=== PATIENT | female | born 1990 | race African-American/Black ===

== ENCOUNTER 2025-05-04 10:24 | Outpatient (AMB) | payer OTHER, SELFPAY ==
--- NOTE | 2025-05-04 11:09 | MHC.PC.OV ---
Vital Signs 05/04/25 11:14 Height 5 ft 3 in Weight 161 lb BMI 28.5 BP 100/78 Blood Pressure Location Lt brachial Position Sitting Respiration 16 Pulse 70 Pulse Source Pulse Oximeter Temp 98.0 F Temp Source Oral Pulse Oximetry (%) 100 Oxygen Delivery Method Room Air Intake Visit Reasons: Est Care/Requesting PE Intake Note: Pt is here today as a New patient to est care/ PE Is last menstrual period known: Yes Last menstrual period: 04/25/25 Allergies No Known Allergies Allergy (Verified 05/04/25 11:26) Medication List - Last Reconciled 05/04/25 by Eve Ortega MD cholecalciferol (vitamin D3) 125 mcg PO DAILY [id number] liver-vit A-D3 240-1,000 mg caps PO povidone (PF) 0.5% (iVizia (PF)) drps ophthalmic (eye) Tobacco use date assessed: 05/04/25 Dental Screening Dental Screen Date: 05/04/25 Did you have a dental visit in the last 12 months?: Yes Did you have a dental problem in the last 6 months where you did not have access to dental care?: No Was dental information given to patient?: Patient has dentist HPI Est Care/Requesting PE HPI Details 34-year-old lady, new to practice, here to establish care with new PCP and for physical exam. 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 Needs referral to a new OBGYN for her routine Pap and pelvic exam, last exam was done in [place] approximately 3 years ago which came back with normal findings per patient [facility] Medical History (Updated 05/04/25 @ 11:34 by Eve Ortega MD) Flu vaccine refused Surgical History (Updated 05/04/25 @ 11:46 by Eve Ortega MD) No pertinent past surgical history Family History (Updated 05/04/25 @ 11:49 by Eve Ortega MD) Maternal Grandfather Prostate cancer Diabetes mellitus Maternal Aunt Breast cancer, Onset Age: 45 Essential hypertension Social History Housing: House Patient Tobacco Use Status: Never used Tobacco e-Cigarette/Vaping Use: Never Used service: No Current occupational status: student Hearing needs: No Vision needs: No Female Reproductive History Menstrual Date of last menstrual period: 04/25/25 Other: Last Pap was done in [place] approximately 3 years, although Questionnaire PHQ-9 Over the last 2 weeks, how often have you been bothered by any of the following problems? 1. Little interest or pleasure in doing things: not at all 2. Feeling down, depressed, or hopeless: not at all 3. Trouble falling or staying asleep, or sleeping too much: not at all 4. Feeling tired or having little energy: not at all 5. Poor appetite or overeating: not at all 6. Feeling bad about yourself - or that you are a failure or have let yourself or your family down: not at all 7. Trouble concentrating on things, such as reading the newspaper or watching television: not at all 8. Moving or speaking so slowly that other people could have noticed. Or the opposite - being so fidgety or restless that you have been moving around a lot more than usual: not at all 9. Thoughts that you would be better off or of hurting yourself in some way: not at all Total score: 0 Depression Screening Interpretation: Negative Depression Screening Done: Yes 96082 - PHQ-9 Billing: Yes Source: Developed by Drs. Satya Mohamud, Brianda Stoll, Malcolm Aldana and colleagues, with an educational elena from [employer] Thrive Questionnaire Date Thrive assessed: 05/04/25 I am a: Patient What is your living situation today?: I have a steady place to live Within the past 12 months, did the food you bought not last and you didn't have the money to get more?: Never true Within the past 12 months, did you worry whether your food would run out before you got money to buy more?: Never true Do you have trouble paying for medicines?: No Do you have trouble getting transportation to medical appointments?: No Do you have trouble paying your heating and electricity bill?: No Do you have trouble taking care of your child, family member or friend?: No Do you have trouble with day-to-day activities such as bathing, preparing meals, shopping, managing finances, etc.?: No Are you currently unemployed and looking for a job?: I choose not to answer this question Are you interested in more education?: No Please select the resources that you would like help with: None Currently or been in a relationship where the following occur: No concerns reported THRIVE Score: 0 AUDIT C Alcohol Use Questionnaire (AUDIT-C) 1. How often do you have a drink containing alcohol?: Never Total Score: 0 RICA-7 AMB Questionnaire RICA-7 Date RICA - 7 assessed: 05/04/25 Feeling nervous, anxious, or on edge: 0 = Not at all Not being able to stop or control worryin = Not at all Worrying too much about different things: 0 = Not at all Trouble relaxin = Not at all Being so restless that it is hard to sit still: 0 = Not at all Becoming easily annoyed or irritable: 0 = Not at all Feeling afraid as if something awful might happen: 0 = Not at all Total RICA-7 score (0-4 normal; 5-9 mild; 10-14 moderate; 15-21 severe): 0 Source: Developed by Drs. Satya Mohamud, Brianda Stoll, Malcolm Aldana and colleagues, with an educational elena from [employer] RICA-7 Assessment Billing RICA-7 Assessment Tool: RICA-7 Assessment 37941 Review of Systems Const Denies body aches, Denies fatigue, Denies fever(s), Denies headache(s) and Denies weakness Eyes Details: sees [facility] in [facility] Denies change in vision and Reports dry eyes (Advised to start taking [place] 3 fatty acid supplements by her ophthalmologi) ENT Denies dizziness, Denies headache(s), Denies nasal congestion and Denies sore throat Card Denies chest pain, Denies lightheadedness, Denies palpitations and Denies dyspnea Resp Denies chest congestion, Denies cough, Denies dyspnea and Denies wheezing GI Denies abdominal pain, Denies change in bowel habits and Denies heartburn Denies hematuria, Denies urinary frequency, Denies dysuria and Denies urinary urgency Musc Reports no additional complaints Skin/Breast Denies breast pain, Denies breast mass, Denies lesions and Denies rash Neuro Denies dizziness, Denies headache(s) and Denies weakness Psych Reports no additional complaints Endo Denies fatigue, Denies polydipsia, Denies polyuria and Denies palpitations South/Lymph Denies easy bruising Aller/Immun Denies seasonal rhinorrhea and Denies wheezing Physical exam (Primary Care) Vital Signs: Last Vital Signs Temp 98.0 F 05/04/25 11:14 Pulse 70 05/04/25 11:14 Resp 16 05/04/25 11:14 BP 100/78 05/04/25 11:14 Pulse Ox 100 05/04/25 11:14 Oxygen Delivery Method Room Air 05/04/25 11:14 BMI result Body Mass Index 28.5 Tobacco/Smoking Status: Tobacco use Status Tobacco use date assessed 05/04/25 05/04/25 11:10 Patient Tobacco Use Status Never used Tobacco 05/04/25 11:21 e-Cigarette/Vaping Use Never Used 05/04/25 11:21 PHQ-9: PHQ-9 Score PHQ-9: Total score 0 05/04/25 11:28 Depression Screening Interpretation: Negative Thrive Assessment: Date of Thrive Assessment Date Thrive assessed 05/04/25 05/04/25 11:21 Currently or been in a relationship where the following occur: No concerns reported Const General: no acute distress and alert Nutritional Appearance: overweight Orientation/consciousness: patient oriented x3 HENMT Head: Yes normocephalic Ears: external ears normal, TM's normal bilaterally and EAC's normal General nose exam: Normal external nose present and No nasal discharge present Face and sinus: Yes face symmetric Mouth: Normal oral and palatal mucosa present, oropharynx normal and moist mucous membranes Eyes General: appearance normal, both eyes and all related structures Eyelids: Yes eyelids normal Conjunctivae: conjunctivae normal Sclerae: sclerae normal Pupils: Equal, round and reactive pupils present EOM: EOMs intact bilaterally Neck Neck: Yes full ROM, Yes no lymphadenopathy and Yes supple Thyroid: Thyroid normal Chest Breast/axilla palpation: normal palpation of the breasts Resp Effort & Inspection: normal respiratory effort and able to speak in complete sentences Auscultation: clear to auscultation bilaterally Cardio Rate: regular rate Rhythm: regular rhythm Heart sounds: S1 normal heart sound present and S2 normal heart sound present GI Palpation (GI): Soft to palpation, nontender, no guarding and no masses Auscultation: normal bowel sounds General: Yes no CVA tenderness Back/Spine/Pelvis Back: no CVA tenderness and No back tenderness Skin General skin exam: no rashes or lesions noted Neuro General: patient oriented x3, gait normal, moves all extremities, Normal light touch and pain sensation, no focal motor deficits and CN's II-XI intact bilaterally Cranial nerves: Yes Equal, round and reactive pupils present Cognition (Neuro): normal cognition Gait exam (Neuro): Normal gait present Motor exam (neuro): 5/5 motor strength present throughout Extrem General: Yes normal to inspection, Yes full ROM, Yes no joint enlargement, Yes no pedal edema and Yes normal gait Psych Appearance: grossly normal and well kempt Mental Status: mental status grossly normal Speech and movement: Normal speech and movement present Affect: normal affect Attitude: cooperative Thought process: Normal thought process present Thought content: Normal thought content present Coding Level of Care Code New Pt Prev Care 18-39yr(08824 Diagnoses Annual visit for general adult medical examination with abnormal findings Z00.01 Screening for malignant neoplasm of cervix Z12.4 History of vitamin D deficiency Z86.39 Additional Codes RICA-7 Assessment Billing - RICA-7 Assessment Tool: RICA-7 Assessment 41040 ([id number]) PHQ-9 - 62264 - PHQ-9 Billing: Yes ([id number]) Assessment & Plan Assessment & Plan (1) Annual visit for general adult medical examination with abnormal findings: Code(s): Z00.01 - Encounter for general adult medical examination with abnormal findings (2) Screening for malignant neoplasm of cervix: Code(s): Z12.4 - Encounter for screening for malignant neoplasm of cervix (3) History of vitamin D deficiency: Code(s): Z86.39 - Personal history of other endocrine, nutritional and metabolic disease Plan Will check appropriate labs. Recommended dental visit every 6 months and regular eye exams, currently sees her eye doctor in [place]. Take adequate calcium in diet and continue taking vitamin-D 3 at least 2000 IU per cap once a day, in addition to weight-bearing exercises to help maintain good muscle tone and weight control. Instructed to do self-breast exam, and recommended to get yearly mammogram, starting at age 40. Referred to [facility] for routine Pap and pelvic exam. Reminded to get her yearly flu shot Orders: Orders Hemoglobin and Hematocrit 05/04/25 Z00.01 - Encounter for general adult medical examination with abnormal findings, Z13.1 - Encounter for screening for diabetes mellitus, Z13.220 - Encounter for screening for lipoid disorders Lipid Panel 05/04/25 Z00.01 - Encounter for general adult medical examination with abnormal findings, Z13.1 - Encounter for screening for diabetes mellitus, Z13.220 - Encounter for screening for lipoid disorders Alanine Aminotransferase 05/04/25 Z00.01 - Encounter for general adult medical examination with abnormal findings, Z13.1 - Encounter for screening for diabetes mellitus, Z13.220 - Encounter for screening for lipoid disorders Vitamin D 25-OH Total 05/04/25 Z86.39 - Personal history of other endocrine, nutritional and metabolic disease Aspartate Amino Transferase 05/04/25 Z00.01 - Encounter for general adult medical examination with abnormal findings, Z13.1 - Encounter for screening for diabetes mellitus, Z13.220 - Encounter for screening for lipoid disorders Basic Metabolic Panel Fasting 05/04/25 Z00.01 - Encounter for general adult medical examination with abnormal findings, Z13.1 - Encounter for screening for diabetes mellitus, Z13.220 - Encounter for screening for lipoid disorders Referrals [facility] Referral Z12.4 - Encounter for screening for malignant neoplasm of cervix
[2025-05-04 11:14] VITALS: BP 100/78; PULSE 70; RESP 16; TEMP 36.7; O2SAT 100; BMI 28.5
--- OUTSIDE RECORDS SUMMARY | 2025-05-04 11:14 | XMS_ITS ---
Author Name [facility] Organization Unknown History of Medication Use Medication Directions Dispensed Refills Start Date End Date Stat us tobramycin-dexametha sone (drops, suspension) one drop four times daily for 7 days then stop 07/25/2024 completed Eysuvis (drops, suspension) one drop four times daily for 2 weeks then twice daily for 2 weeks then stop 05/26/2024 completed erythromycin (tablet, delayed release (enteric coated)) 500 mg completed iVizia (PF) (drops) 0.5 % comp leted Encounters Encounter Type Encounter Reason Primary Diagnosis Location Date Ambulatory [facility] 03/11/2025 Ambulatory [facility] 07/30 Ambulatory [facility] 06/30 Ambulatory [facility] 06/29 Ambulatory [facility] 05/29 Ambulatory [facility] 04/29 Care Team Organization Name Specialty Phone Email Start Date End Da te [facility] 05/20/2024 [facility] 05/20/2024
== END 2025-05-04 11:53 | disposition home or self-care (01) ==
LOC: HO.HMCC 10:24
PROVIDERS: Visit Provider Internal Medicine
DX: Z00.01 Encounter for general adult medical examination with abnormal findings (principal); Z12.4 Encounter for screening for malignant neoplasm of cervix; Z86.39 Personal history of other endocrine, nutritional and metabolic disease

== ENCOUNTER → 2025-05-04 10:24 | Outpatient (BNVA) | payer OTHER, SELFPAY | PROVIDERS: Visit Provider Internal Medicine | DX: Z00.01 Encounter for general adult medical examination with abnormal findings (principal); Z86.39 Personal history of other endocrine, nutritional and metabolic disease | CPT/HCPCS: 96127 ==

== ENCOUNTER 2025-06-12 08:35 | Outpatient (REF) | payer OTHER, SELFPAY ==
[2025-06-12 10:23] LABS: Hematocrit 37.2 % (37.0-47.0); Hemoglobin 11.8 g/dl (12.0-16.0)
[2025-06-12 10:52] LABS: Alanine Aminotransferase 14 U/L (0-31); Anion Gap 13 (12-20); Aspartate Amino Transferase 20 U/L (5-31); Blood Urea Nitrogen 8 mg/dL (9-16); Calcium 9.3 mg/dL (8.4-10.2); Carbon Dioxide 23 mmol/L (22-29); Chloride 105 mmol/L (96-108); Cholesterol 225 mg/dL (<200); Estimated Glomerular Filt Rate > 60; HDL Cholesterol 61 mg/dL (>40); Potassium 3.7 mmol/L (3.3-5.1); Sodium 137 mmol/L (135-145); Triglycerides 63 mg/dL (<150)
== END 2025-06-12 08:36 | disposition home or self-care (01) ==
LOC: HO.HMGCLDS 08:35
PROVIDERS: PCP Internal Medicine; Visit Provider Internal Medicine
DX: Z00.01 Encounter for general adult medical examination with abnormal findings (principal); Z13.220 Encounter for screening for lipoid disorders; Z13.1 Encounter for screening for diabetes mellitus; Z86.39 Personal history of other endocrine, nutritional and metabolic disease
CPT/HCPCS: 36415; 80048; 80061; 82306; 84450; 84460; 85014; 85018

== ENCOUNTER 2025-07-28 11:05 | Outpatient (REF) | payer OTHER, SELFPAY ==
--- OUTSIDE RECORDS SUMMARY | 2025-07-23 08:15 | XMS_ITS | Encounter Summary ---
Author Organization [facility] Address [address] [place] [address] Care Team Providers Care Air Bag Builder Name Role Phone Eve Ortega MD Primary Care Provider Reason for Visit * Reason Comments Cerumen Impaction Encounter Details Date Type Department Care Team (Latest Contact Info) Description 07/23/2025 8:15 AM EDT Procedure visit [facility] [address], [facility] [address] [place] [id number] Mario Crespo MD [address] [place] [address] Bilateral impacted cerumen (Primary Dx); Conductive hearing loss, bilateral; Eustachian tube dysfunction, bilateral Social History Tobacco Use Types Packs/Day Years Used Date Smoking Tobacco: Never Tobacco Cessation:Counseling Given: Not Answered Alcohol Use Standard Drinks/Week Comments Never 0 (1 standard drink = 0.6 oz pur e alcohol) Comments Unknown Sex and Gender Information Value Date Recorded Sex Assigned at Female 07/21/2025 11:18 AM EDT Legal Sex Female 9:59 AM EDT Gender Identity Female 07/21/2025 11:18 AM EDT Sexual Orientation Heterosexual (straight) 07/21 11:18 AM EDT documented as of this encounter Progress Notes * Mario Crespo MD - 07/23/2025 8:15 AM EDT Images from the original note were not included. [facility], [facility] [address] [facility] [id number] Loc: [phone] Encounter Date: 07/23/2025 History of Present Illness: Jude Sal is a 34 y.o. female who presents today for hearing loss. Patient has been having difficulty with bilateral hearing loss. No difficulty with pain or drainage. No dizziness or instability.No family history of ear disease. No exposure to loud noise. No swelling or behind either ear. No cervical apathy. No difficulty with nasal obstruction. No history of tympanic perforations. Patient also has intermittent difficulty with ear pressure when she flies Physical Exam ENT Physical Exam Ear Auricles: bilateral auricles normal; External Mastoids: bilateral external mastoids normal; Ear Canals: bilateral ear canals impacted cerumen observed; Tympanic Membranes: bilateral tympanic membranes normal; Nose External Nose: nares patent bilaterally; external nose normal; Internal Nose: nasal mucosa normal; septum normal; bilateral inferior turbinates normal; Oral Cavity/Oropharynx Lips: normal; Teeth: normal; Gums: gingiva normal; Tongue: normal; Oral mucosa: normal; Hard palate: normal; Soft palate: normal; Tonsils: normal; Base of Tongue: normal; Posterior pharyngeal wall: no lesion noted; Nasopharynx/Hypopharynx/Larynx Nasopharynx Findings: normal; Hypopharynx: normal; Larynx Findings: normal; Review of Systems Visit Orders. 1. Bilateral impacted cerumen 2. Conductive hearing loss, bilateral 3. Eustachian tube dysfunction, bilateral Past Medical History History reviewed. No pertinent past medical history. History reviewed. No pertinent surgical history. Family History Problem Relation Age of Onset Cancer Maternal Aunt Social History[1] Medication List Current Medications[2] Allergies Allergies[3] Procedure Procedure;: Cerumen removal Using microscope and speculum, the right ear was examined and obstructing wax was removed using loop curette. In a similar fashion left ear was examined and using microscope and speculum obstructing wax removed from the left ear canal. Assessment & Plan Sensory hearing loss and bilateral obstructing earwax. Made recommendations for hygiene for ears including avoiding Q-tips. Using baby oil twice a month. Follow-up as needed. Gave patient handout for flying instructions. Mario Crespo MD [1] Social History Tobacco Use Smoking status: Never Substance Use Topics Alcohol use: Never Drug use: Never [2] No current outpatient medications on file. [3] No Known Allergies documented in this encounter Plan of Treatment Not on file documented as of this encounter Visit Diagnoses Diagnosis Bilateral impacted cerumen- Primary Impacted cerumen Conductive hearing loss, bilateral Eustachian tube dysfunction, bilateral documented in this encounter Care Teams Air Bag Builder Relationship Specialty Start Date End Date Eve Ortega MD [address] [place] [address] PCP - General Internal Medicine 07/23/25 documented as of this encounter
--- OUTSIDE RECORDS SUMMARY | 2025-07-28 12:34 | XMS_ITS | Clinical Summary ---
Author Organization [facility] Address [address] [place] [address] Care Team Providers Care Flight Attendant Ramp Name Role Phone Eve Ortega MD Primary Care Provider Allergies No known active allergies Medications No known medications Active Problems No known active problems Encounters Date Type Department Care Team Description 07/23/2025 8:15 AM EDT Procedure visit [facility] [address], [address] [place] [address] Mario Crespo MD Bilateral impacted cerumen (Primary Dx); Conductive hearing loss, bilateral; Eustachian tube dysfunction, bilateral from Last 3 Months Family History Medical History Relation Name Comments Cancer Maternal Aunt Isela Negrete Relation Name Status Comments Maternal Aunt Isela Negrete Alive Social History Tobacco Use Types Packs/Day Years [...] Orientation Heterosexual (straight) 07/21 11:18 AM EDT Plan of Treatment Health Maintenance Due Date Last Done Comments Hepatitis C Virus Screening 1991 HIV Screening 2004 DTaP/Tdap/Td Vaccines (1 - Tdap) 2010 Hepatitis B Vaccines (1 of 3 - 19+ 3-dose series) 2010 Pap Smear (Ages 21-65) 2012 Influenza Vaccine 05/29/2025 COVID-19 Vaccine ( - 2023-2 5 season) 2025 HPV Vaccines (No Doses Required) Completed Pneumococcal Vaccine: Pediat jovan (0-5 Years) and At-Risk Patients (6 to 49 Years) Aged Out No longer eligible b ased on patient's age to complete this topic Insurance [employer] Care Teams Flight Attendant Ramp Relationship Specialty Start Date End Date Eve Ortega MD [address] [place] [address] PCP - General Internal Medicine 07/23/25
[2025-07-31 05:58] LABS: TS Negative Control Passed; TS Panel A 0; TS Panel B 0; TS Positive Control Passed; TSpotTB Negative (Negative)
== END 2025-07-28 11:06 | disposition home or self-care (01) ==
LOC: HO.HMGCLDS 11:05
PROVIDERS: PCP Internal Medicine; Visit Provider Internal Medicine
DX: Z11.1 Encounter for screening for respiratory tuberculosis (principal)
CPT/HCPCS: 36415; 86481